=== PATIENT | female | born 2000 | race Caucasian/White ===

== ENCOUNTER 2021-01-11 18:14 | Emergency (ER) | payer BC ==
[2021-01-11] MEDS ORDERED: OMNICEF 300 MG300 MG PO (19:12)
[2021-01-11] MEDS ORDERED: IBUPROFEN600 MG PO (19:12)
[2021-01-11] MEDS ORDERED: FLOXIN 0.3% OTIC5 ML AD (19:12)
== END 2021-01-11 19:40 | disposition home or self-care (01) ==
LOC: ER1 18:14
DX: H66.91 Otitis media, unspecified, right ear (principal)
CPT/HCPCS: 99282

== ENCOUNTER → 2021-05-20 | Outpatient (CLI) | payer BC ==
[~2021-05-20] MED LIST: FLOXIN 0.3% OTIC5 ML AD; IBUPROFEN600 MG PO; OMNICEF 300 MG300 MG PO
== END ==
LOC: EROP 17:16
DX: L08.9 Local infection of the skin and subcutaneous tissue, unspecified (principal)
CPT/HCPCS: 87070; 87205

== ENCOUNTER → 2021-09-12 | Outpatient (CLI) | payer BC ==
[2021-09-12 16:13] LABS: HEMOGLOBIN 13.1 gm/dl (12.3-15.3); RED BLOOD COUNT 4.41 M/UL (4.00-5.10); WHITE BLOOD COUNT 8.9 K/UL (4.5-11.0)
[2021-09-12 16:48] LABS: BUN/CREATININE RATIO 13 (0-10)
== END ==
LOC: RAD 15:46
DX: K20.0 Eosinophilic esophagitis (principal); M25.551 Pain in right hip
CPT/HCPCS: 36415; 73501; 80053; 85025; 85652; 86140

== ENCOUNTER → 2021-12-08 | Outpatient (CLI) | payer BC ==
[2021-12-08 13:54] LABS: HEMOGLOBIN 13.1 gm/dl (12.3-15.3); RED BLOOD COUNT 4.37 M/UL (4.00-5.10); WHITE BLOOD COUNT 5.3 K/UL (4.5-11.0)
[2021-12-08 14:19] LABS: BUN/CREATININE RATIO 22 (0-10)
== END ==
LOC: OPSV 13:27
PROVIDERS: Internal Medicine Geriatric Medicine
DX: U07.1 COVID-19 (principal); E86.0 Dehydration
CPT/HCPCS: 80053; 85027; 96360; 96361